=== PATIENT | male | born 1975 | race Two or more races ===

== ENCOUNTER 2016-11-19 14:35 | Emergency (ER) | payer SELFPAY ==
[~2016-11-19] VITALS: Ht 170.2 cm; Wt 81.6 kg
[2016-11-19] MEDS ORDERED: IV SET PRIMARY 1 EA INFUS.SET MC ONE (14:56)
[2016-11-19] MEDS ORDERED: IV NS 0.9% 1,000 ML ONE (14:56)
[2016-11-19 15:00] LABS: BASOPHILS # (AUTO) 0.1 /CMM (0.0-0.2); BASOPHILS % (AUTO) 0.8 % (0.0-2.0); EOSINOPHILS % (AUTO) 0.5 % (0.0-6.0); HEMATOCRIT 40 % (39-51); HEMOGLOBIN 13.1 g/dL (13.5-17.5); LYMPHOCYTES # (AUTO) 2.3 /CMM (0.8-4.8); LYMPHOCYTES % (AUTO) 32.1 % (20.0-44.0); MEAN CORPUSCULAR HEMOGLOBIN 28 PG (26.0-33.0); MEAN CORPUSCULAR HGB CONC 33 g/dl (31.0-36.0); MEAN CORPUSCULAR VOLUME 86 fL (80-96); MONOCYTES # (AUTO) 0.7 /CMM (0.1-1.30); MONOCYTES % (AUTO) 9.9 % (2.0-12.0); NEUTROPHILS % (AUTO) 56.7 % (43.0-81.0); PLATELET COUNT (AUTO) 140 /CMM (150-450); RDW COEFFICIENT OF VARIATION 18.3 (11.5-15.0); RED BLOOD CELL COUNT(AUTO) 4.65 MIL/uL (4.5-6.0); WHITE BLOOD COUNT (AUTO) 7.1 K/uL (4.3-11.0)
[2016-11-19] MEDS ORDERED: IV NS 0.9% 1,000 ML BAG IV ONE (15:00)
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
[2016-11-19 15:11] LABS: CALCIUM, SERUM 7.5 mg/dL (8.5-10.1); CREATININE 0.8 mg/dL (0.6-1.3); POTASSIUM 3.4 mmol/L (3.5-5.1)
[2016-11-19 15:15] LABS: INR 1.39 (0.87-1.13); PROTHROMBIN TIME 14.7 SECS (9.5-12.7)
[2016-11-19 15:16] LABS: ALBUMIN 2.7 g/dL (3.4-5.0); BILIRUBIN,DIRECT 1.7 mg/dL (0.0-0.2); BILIRUBIN,TOTAL 2.7 mg/dL (0.2-1.0)
[2016-11-19] MEDS ORDERED: ALBUTEROL FS 2.5 MG/3 ML VIAL.NEB ONE (15:29)
[2016-11-19] MEDS ORDERED: ALBUTEROL FS 2.5 MG/0.5 ML VIAL.NEB NEB ONE (15:30)
--- NOTE | 2016-11-19 15:38 | NUR ---
rt at bedside
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
--- NOTE | 2016-11-19 18:13 | NUR ---
pt resting calmly in bed, nad noted.
--- NOTE | 2016-11-19 19:14 | NUR ---
pt ambulated to restroom with steady gait. IV removed per pt request. Catheter intact and site benign. Pressure and 4x4 applied to site. No bleeding noted.
--- NOTE | 2016-11-19 20:23 | NUR ---
Dr Ritter at bedside for pt eval. Facial swelling is going down but remains swollen through the cheek area and tender to palp. Orders received.
--- NOTE | 2016-11-19 21:13 | NUR ---
call radiology to f/u on status of CT. environmental services floor tech states they will pick the patient up "in a few".
--- NOTE | 2016-11-19 23:08 | NUR ---
Patient discharged to home in stable condition. Written and verbal after care instructions given. Patient verbalizes understanding of instruction. ambulatory with steady gait.
[2016-11-19 23:13] VITALS: BP 104/54
== END 2016-11-19 23:14 | disposition home or self-care (01) ==
LOC: ER 14:37
DX: S00.83XA Contusion of other part of head, initial encounter (principal); F10.129 Alcohol abuse with intoxication, unspecified; K70.30 Alcoholic cirrhosis of liver without ascites; K70.10 Alcoholic hepatitis without ascites; G93.40 Encephalopathy, unspecified; D69.6 Thrombocytopenia, unspecified; X58.XXXA Exposure to other specified factors, initial encounter; Y93.89 Activity, other specified; Y92.89 Other specified places as the place of occurrence of the external cause; Y99.8 Other external cause status
CPT/HCPCS: 36415; 70450-TC; 70486-TC; 71010-TC; 80048-TC; 80076-TC; 83690-TC; 84443-TC; 85025-TC; 85730-TC; A4606; J7030; Z7610

== ENCOUNTER 2016-12-07 01:35 | Emergency (ER) | payer SELFPAY ==
[~2016-12-07] VITALS: Ht 172.7 cm; Wt 86.2 kg
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
--- NOTE | 2016-12-07 02:40 | NUR ---
Dr Elias at bedside.
[2016-12-07] MEDS ORDERED: oxyCODONE/APAP (5/325 MG) 1 UDTAB TABLET ONE (02:54)
--- NOTE | 2016-12-07 02:56 | NUR ---
started a saline lock on the right ac g20, blood drawn and sent to lab.
[2016-12-07] MEDS ORDERED: oxyCODONE/APAP (5/325 MG) 1 UDTAB TABLET PO ONE (03:00)
[2016-12-07 03:14] LABS: BASOPHILS % (AUTO) 0.3 % (0.0-2.0); EOSINOPHILS # (AUTO) 0.1 /CMM (0.0-0.7); EOSINOPHILS % (AUTO) 1.4 % (0.0-6.0); HEMATOCRIT 33 % (39-51); LYMPHOCYTES # (AUTO) 0.8 /CMM (0.8-4.8); LYMPHOCYTES % (AUTO) 19.3 % (20.0-44.0); MEAN CORPUSCULAR HEMOGLOBIN 30 PG (26.0-33.0); MEAN CORPUSCULAR HGB CONC 34 g/dl (31.0-36.0); MEAN CORPUSCULAR VOLUME 88 fL (80-96); MONOCYTES # (AUTO) 0.5 /CMM (0.1-1.30); MONOCYTES % (AUTO) 12.1 % (2.0-12.0); NEUTROPHILS # (AUTO) 2.7 /CMM (1.8-8.9); NEUTROPHILS % (AUTO) 66.9 % (43.0-81.0); RDW COEFFICIENT OF VARIATION 20.7 (11.5-15.0); RED BLOOD CELL COUNT(AUTO) 3.74 MIL/uL (4.5-6.0); WHITE BLOOD COUNT (AUTO) 4.1 K/uL (4.3-11.0)
--- NOTE | 2016-12-07 03:17 | NUR ---
back from ct.
[2016-12-07 03:18] LABS: PLATELET COUNT (AUTO) 38 /CMM (150-450)
[2016-12-07 03:27] LABS: ALBUMIN 2.2 g/dL (3.4-5.0); BILIRUBIN,DIRECT 5.4 mg/dL (0.0-0.2); BILIRUBIN,TOTAL 6.9 mg/dL (0.2-1.0); CALCIUM, SERUM 7.3 mg/dL (8.5-10.1); CREATININE 0.5 mg/dL (0.6-1.3); POTASSIUM 3.2 mmol/L (3.5-5.1)
[2016-12-07 03:30] LABS: INR 1.3 (0.87-1.13); PROTHROMBIN TIME 14.2 SECS (9.5-12.7)
--- NOTE | 2016-12-07 03:30 | NUR ---
lapd at bedside.
[2016-12-07] MEDS ORDERED: LACTULOSE 10 G/15 ML UDC (PYXIS) PO ONE (04:00)
[2016-12-07] MEDS ORDERED: LACTULOSE 10 G/15 ML UDC (PYXIS) ONE (04:06)
--- NOTE | 2016-12-07 04:37 | NUR ---
Patient discharged to home in stable condition. Written and verbal after care instructions given. Patient verbalizes understanding of instruction. Patient is ambulatory with steady gait.
[2016-12-07 04:39] VITALS: BP 120/78
[2016-12-07 06:04] LABS: ANISOCYTOSIS 3+; BAND % (MANUAL) 1 % (0.0-5.0); BASOPHILS % (MANUAL) 1 % (0.0-2.0); EOSINOPHILS % (MANUAL) 1 % (0-4); LYMPHOCYTES % (MANUAL) 23 % (16-48); MONOCYTES % (MANUAL) 5 % (0-11.0); NEUTROPHILS % (MANUAL) 69 (42-76); PLATELET ESTIMATE DECREASED
== END 2016-12-07 04:40 | disposition home or self-care (01) ==
LOC: ER 01:37
DX: S30.1XXA Contusion of abdominal wall, initial encounter (principal); K70.10 Alcoholic hepatitis without ascites; E72.20 Disorder of urea cycle metabolism, unspecified; D61.818 Other pancytopenia; Z90.89 Acquired absence of other organs; Z90.49 Acquired absence of other specified parts of digestive tract; W18.09XA Striking against other object with subsequent fall, initial encounter; Y93.89 Activity, other specified; Y92.830 Public park as the place of occurrence of the external cause; Y99.8 Other external cause status
CPT/HCPCS: 36415; 70450-TC; 80048-TC; 80076-TC; 82140-TC; 83690-TC; 85025-TC; 85730-TC; 86850-TC; A4606; G0480; Z7610